=== PATIENT | female | born 1955 | race African-American/Black ===

== ENCOUNTER 2018-09-07 16:28 | Inpatient (IN) | payer OTHER ==
[~2018-09-07] VITALS: Ht 157.5 cm; Wt 92.6 kg
[2018-09-07] MEDS ORDERED: ONDANSETRON PF 4 MG/2 ML VIAL. IV ONE (17:00)
[2018-09-07] MEDS ORDERED: ASPIRIN 325 MG TABLET PO ONE (17:00)
[2018-09-07] MEDS ORDERED: MORPHINE SULFATE 10 MG/ML VIAL. IV ONE (17:00)
[2018-09-07] MEDS ORDERED: cloNIDine HCL 0.1 MG TABLET PO ONE (17:00)
--- NOTE | 2018-09-07 17:22 | RAD ---
PROCEDURE: PORTABLE CHEST 1V CLINICAL INDICATION: Chest pain, HTN COMPARISON: None FINDINGS: No pneumothorax identified. Cardiac and mediastinal contours unremarkable. No pulmonary consolidation or acute airspace disease. No acute osseous abnormalities identified. IMPRESSION: No pulmonary consolidation or acute airspace disease. Electronically signed by: Sanjiv Roberson DO (09/07/2018 5:19 PM) [facility]
[2018-09-07 17:39] LABS: BASO # 0.1 x10^3/uL (0.0-0.2); BASO % 2 % (0-3); EOS # 0.2 x10^3/uL (0.0-0.7); EOS % 3 % (0-3); HEMATOCRIT 40.4 % (36.0-47.0); HEMOGLOBIN 14.2 g/dL (12.0-15.5); LYMPH # 2.9 x10^3/uL (1.0-4.8); LYMPH % 35 % (24-48); MEAN CORPUSCULAR HEMOGLOBIN 31 pg (25-35); MEAN CORPUSCULAR HGB CONC 35 g/dL (31-37); MEAN CORPUSCULAR VOLUME 88 fL (79-100); MONO # 0.5 x10^3/uL (0.0-1.1); MONO % 6 % (0-9); NEUT # 4.7 x10^3uL (1.8-7.7); NEUT % 55 % (31-73); PLATELET COUNT 336 x10^3/uL (140-400); RED BLOOD COUNT 4.58 x10^6/uL (3.50-5.40); RED CELL DISTRIBUTION WIDTH 13.6 % (11.5-14.5); WHITE BLOOD COUNT 8.5 x10^3/uL (4.0-11.0)
[2018-09-07 17:51] LABS: CALCIUM 10.1 mg/dL (8.5-10.1); CREATININE 1.2 mg/dL (0.6-1.0); GFR 54.7; POTASSIUM 4.3 mmol/L (3.5-5.1)
[2018-09-07 17:57] LABS: ALBUMIN 4.1 g/dL (3.4-5.0); MAGNESIUM 2.1 mg/dL (1.8-2.4); TOTAL BILIRUBIN 0.3 mg/dL (0.2-1.0); TOTAL PROTEIN 8.3 g/dL (6.4-8.2)
[2018-09-07] MEDS ORDERED: ONDANSETRON PF 4 MG/2 ML VIAL. IV PRN ×2 (18:45→19:15)
[2018-09-07] MEDS ORDERED: ACETAMINOPHEN 325 MG TABLET. PO PRN (18:45)
[2018-09-07] MEDS ORDERED: NITROGLYCERIN SUBLINGUAL 0.4 MG BOTTLE OF 25. SL PRN (18:45)
[2018-09-07] MEDS ORDERED: MORPHINE SULFATE 4 MG/ML VIAL. IV PRN (18:45)
[2018-09-07] MEDS ORDERED: diphenhydrAMINE HCL 25 MG CAPSULE PO PRN (19:15)
[2018-09-07] MEDS ORDERED: LABETALOL 20 MG/4 ML DISP.SYRIN. IVP PRN (19:15)
--- NOTE | 2018-09-07 19:20 | PDOC1 ---
History and Physical Date of Admission Date of Admission DATE: 09/07/18 TIME: 19:14 Identification/Chief Complaint Chief Complaint left groin pain travelling to her left foot/toes Source Source: Caregiver, Chart review, Patient History of Present Illness History of Present Illness 63-year-old obese -H[place] female, first time here [facility], acute onset rather left groin pain traveling to her left toe/foot. Workup done at [facility] in [facility] included a CAT scan abdomen and pelvis and MRI showing osteoarthritis. She has seen an urgent care/ PCP prescribed her Flexeril 10 mg every 8 with little relief. She looks uncomfortable, blood pressure high because of the pain. She does not usually have high blood pressure. She is on clonidine 0.3 by mouth daily at bedtime at home, Synthroid, and Flexeril. She is prediabetic diet controlled. Past surgical history hysterectomy, sinus surgery and breast biopsy which is benign Family history: Cancer and DVT. Lab work is unremarkable except for mild creatinine 1.2 and a high blood pressure. She mentions right-sided chest pain hence was admitted. The right-sided chest pain she thinks is radiation from the significant discomfort she has from the left groin hip area traveling to her foot. There is palpable dorsalis pedis, no recent trauma, no red flags of back pain. I am admitting to consult physiatry too, trial of Lidoderm patch and NSAID. Controlled blood pressure. ER has consulted cardiology for the right-sided chest pain. Past Medical History Cardiovascular: HTN Endocrine: Diabetes Past Surgical History Past Surgical History: Breast Biopsy, Other (sinus sx) Family History Family History: High Cholestrol, Hypertension Social History Smoke: Quit ALCOHOL: occassional Drugs: None Current Medications Current Medications Current Medications Aspirin (Mel Aspirin) 325 mg 1X ONCE PO Last administered on 09/07/18at 17: 16; Start 09/07/18 at 17:00; Stop 09/07/18 at 17:01; Status DC Clonidine HCl (Catapres) 0.2 mg 1X ONCE PO Last administered on 09/07/18at 17: 16; Start 09/07/18 at 17:00; Stop 09/07/18 at 17:01; Status DC Ondansetron HCl (Zofran) 4 mg 1X ONCE IV Last administered on 09/07/18at 17:24 ; Start 09/07/18 at 17:00; Stop 09/07/18 at 17:01; Status DC Morphine Sulfate (Morphine Sulfate) 5 mg 1X ONCE IV Last administered on 09/07at 17:25; Start 09/07/18 at 17:00; Stop 09/07/18 at 17:01; Status DC Ondansetron HCl (Zofran) 4 mg PRN Q8HRS PRN IV NAUSEA/VOMITING; Start at 18:45; Stop 09/08/18 at 18:44 Morphine Sulfate (Morphine Sulfate) 4 mg PRN Q2HR PRN IV PAIN; Start 09/07/18 at 18:45; Stop 09/08/18 at 18:44 Acetaminophen (Tylenol) 650 mg PRN Q4HRS PRN PO FEVER; Start 09/07/18 at 18:45 ; Stop 09/08/18 at 18:44 Nitroglycerin (Nitrostat) 0.4 mg PRN Q5MIN PRN SL CHEST PAIN; Start 09/07/18 at 18:45; Stop 09/08/18 at 18:44 Allergies Allergies: Coded Allergies: No Known Drug Allergies (Unverified , 09/07/18) ROS Review of System As per history of present illness, the rest of ROS 14 point negative Physical Exam General: Alert, Oriented X3, Cooperative, No acute distress HEENT: Atraumatic, PERRLA, EOMI Lungs: Clear to auscultation, Normal air movement Heart: S1S2, RRR, no thrills, no rubs, no gallops, no murmurs Cardiovascular: S1, S2 Breasts: Normal, Rt breast nml w/o mass, Lt breast nml w/o mass, Nipples normal Abdomen: Normal bowel sounds, Soft, No tenderness Rectal Exam: not examined PELVIC: Nml ext genitalia, Nml ext vulva Extremities: Other (no limitation in motion of bilateral knees but on flexion of the left knee significant pain in the left groin area/left hip area and lower back) Skin: No rashes, No breakdown, No significant lesion Neuro: Normal gait, Normal speech, Strength at 5/5 X4 ext, Normal tone, Sensation intact, Cranial nerves 3-12 NL, Reflexes 2+ Psych/Mental Status: Mental status NL, Mood NL Vitals Vitals Vital Signs Date Time Temp Pulse Resp B/P (MAP) Pulse Ox O2 Delivery O2 Flow Rate FiO2 09/07/18 17:45 74 20 167/89 (115) 100 Room Air 2.0 09/07/18 16:43 97.9 97.9 Labs Labs Laboratory Tests Test 09/07/18 17:22 White Blood Count 8.5 x10^3/uL (4.0-11.0) Red Blood Count 4.58 x10^6/uL (3.50-5.40) Hemoglobin 14.2 g/dL (12.0-15.5) Hematocrit 40.4 % (36.0-47.0) Mean Corpuscular Volume 88 fL (79-100) Mean Corpuscular Hemoglobin 31 pg (25-35) Mean Corpuscular Hemoglobin Concent 35 g/dL (31-37) Red Cell Distribution Width 13.6 % (11.5-14.5) Platelet Count 336 x10^3/uL (140-400) Neutrophils (%) (Auto) 55 % (31-73) Lymphocytes (%) (Auto) 35 % (24-48) Monocytes (%) (Auto) 6 % (0-9) Eosinophils (%) (Auto) 3 % (0-3) Basophils (%) (Auto) 2 % (0-3) Neutrophils # (Auto) 4.7 x10^3uL (1.8-7.7) Lymphocytes # (Auto) 2.9 x10^3/uL (1.0-4.8) Monocytes # (Auto) 0.5 x10^3/uL (0.0-1.1) Eosinophils # (Auto) 0.2 x10^3/uL (0.0-0.7) Basophils # (Auto) 0.1 x10^3/uL (0.0-0.2) Sodium Level 140 mmol/L (136-145) Potassium Level 4.3 mmol/L (3.5-5.1) Chloride Level 101 mmol/L (98-107) Carbon Dioxide Level 30 mmol/L (21-32) Anion Gap 9 (6-14) Blood Urea Nitrogen 17 mg/dL (7-20) Creatinine 1.2 mg/dL (0.6-1.0) Estimated GFR (Cockcroft-Gault) 54.7 BUN/Creatinine Ratio 14 (6-20) Glucose Level 189 mg/dL (70-99) Calcium Level 10.1 mg/dL (8.5-10.1) Magnesium Level 2.1 mg/dL (1.8-2.4) Total Bilirubin 0.3 mg/dL (0.2-1.0) Aspartate Amino Transf (AST/SGOT) 27 U/L (15-37) Alanine Aminotransferase (ALT/SGPT) 107 U/L (14-59) Alkaline Phosphatase 213 U/L (46-116) Troponin I Quantitative < 0.017 ng/mL (0.000-0.055) JZ-Bxm-T-Type Natriuretic Peptide 30 pg/mL (0-124) Total Protein 8.3 g/dL (6.4-8.2) Albumin 4.1 g/dL (3.4-5.0) Albumin/Globulin Ratio 1.0 (1.0-1.7) Laboratory Tests Test 09/07/18 17:22 White Blood Count 8.5 x10^3/uL (4.0-11.0) Red Blood Count 4.58 x10^6/uL (3.50-5.40) Hemoglobin 14.2 g/dL (12.0-15.5) Hematocrit 40.4 % (36.0-47.0) Mean Corpuscular Volume 88 fL (79-100) Mean Corpuscular Hemoglobin 31 pg (25-35) Mean Corpuscular Hemoglobin Concent 35 g/dL (31-37) Red Cell Distribution Width 13.6 % (11.5-14.5) Platelet Count 336 x10^3/uL (140-400) Neutrophils (%) (Auto) 55 % (31-73) Lymphocytes (%) (Auto) 35 % (24-48) Monocytes (%) (Auto) 6 % (0-9) Eosinophils (%) (Auto) 3 % (0-3) Basophils (%) (Auto) 2 % (0-3) Neutrophils # (Auto) 4.7 x10^3uL (1.8-7.7) Lymphocytes # (Auto) 2.9 x10^3/uL (1.0-4.8) Monocytes # (Auto) 0.5 x10^3/uL (0.0-1.1) Eosinophils # (Auto) 0.2 x10^3/uL (0.0-0.7) Basophils # (Auto) 0.1 x10^3/uL (0.0-0.2) Sodium Level 140 mmol/L (136-145) Potassium Level 4.3 mmol/L (3.5-5.1) Chloride Level 101 mmol/L (98-107) Carbon Dioxide Level 30 mmol/L (21-32) Anion Gap 9 (6-14) Blood Urea Nitrogen 17 mg/dL (7-20) Creatinine 1.2 mg/dL (0.6-1.0) Estimated GFR (Cockcroft-Gault) 54.7 BUN/Creatinine Ratio 14 (6-20) Glucose Level 189 mg/dL (70-99) Calcium Level 10.1 mg/dL (8.5-10.1) Magnesium Level 2.1 mg/dL (1.8-2.4) Total Bilirubin 0.3 mg/dL (0.2-1.0) Aspartate Amino Transf (AST/SGOT) 27 U/L (15-37) Alanine Aminotransferase (ALT/SGPT) 107 U/L (14-59) Alkaline Phosphatase 213 U/L (46-116) Troponin I Quantitative < 0.017 ng/mL (0.000-0.055) ST-Lvp-G-Type Natriuretic Peptide 30 pg/mL (0-124) Total Protein 8.3 g/dL (6.4-8.2) Albumin 4.1 g/dL (3.4-5.0) Albumin/Globulin Ratio 1.0 (1.0-1.7) VTE Prophylaxis Ordered VTE Prophylaxis Devices: Yes VTE Pharmacological Prophylaxi: Yes Assessment/Plan Assessment/Plan Acute to subacute onset left groin pain, radiating to the foot Low back pain Diagnosis osteoarthritis of the left hip causing pain Obesity with a BMI 35 Accelerated hypertension POA on top of acute pain Hypothyroidism on Synthroid History hysterectomy, sinus surgery, breast biopsy which is benign History of DVT in the family History of colon cancer in the family RT sided CP Plan: Resume home meds including Flexeril 10 every 8 Labetalol when necessary for high bp - but then again she is in pain NSAID, trial of Lidoderm patch to leg - physiatry consult Cards consulted for right-sided chest pain-cardiac enzymes to cycle Just because of family history of DVT and significant left leg pain I will order ultrasound just to make sure there is no DVT otherwise my threshold for this is high. Seen at ER, discussed my findings and plan she agrees ARANZA BERRY MD Sep 07, 2018 19:20
--- NOTE | 2018-09-07 19:33 | PHYS DOC ---
Past Medical History Past Medical History: No Pertinent History Past Surgical History: Hysterectomy Additional Past Surgical Histo: BREAST BIOPSY, SINUS SURGERY Alcohol Use: Occasionally Drug Use: None Adult General Chief Complaint Chief Complaint: CHEST PAIN-CARDIAC NATURE HPI HPI Patient is a 63 year old female with no significant medical history per her statement though takes clonidine for insomnia who presents complaining of 8 out of 10 intermittent episodes of substernal chest pain nonradiating in nature that have been going on for 2 days. Patient is also complaining of nausea, denies any vomiting. She states this nausea has been going on for weeks. She states she's had abdominal pain for weeks and has been seen at [facility] where they did a big workup which was negative. Patient states she does not know if her abdominal pain is the one causing her to have chest pain. Denies any diarrhea. Denies any fever. She appears sad and tearful at times. Denies any suicidal or homicidal ideations. Patient denies anything relieving or making her pain worse. Review of Systems Review of Systems Constitutional: Denies fever or chills [] Eyes: Denies change in visual acuity, redness, or eye pain [] HENT: Denies nasal congestion or sore throat [] Respiratory: Denies cough or shortness of breath [] Cardiovascular: Reports substernal chest pain GI: Reports nausea with abdominal pain for weeks, denies vomiting, bloody stools or diarrhea [] : Denies dysuria or hematuria [] Musculoskeletal: Denies back pain or joint pain [] Integument: Denies rash or skin lesions [] Neurologic: Denies headache, focal weakness or sensory changes [] Pysch: appears sad and tearful All other systems were reviewed and found to be within normal limits, except as documented in this note. Current Medications Current Medications Current Medications Medications (Trade) Dose Ordered Sig/João Start Time Stop Time Status Last Admin Dose Admin Aspirin (Mel Aspirin) 325 mg 1X ONCE 09/07/18 17:00 09/07/18 17:01 DC 09/07/18 17:16 325 MG Clonidine HCl (Catapres) 0.2 mg 1X ONCE 09/07/18 17:00 09/07/18 17:01 DC 09/07/18 17:16 0.2 MG Morphine Sulfate (Morphine Sulfate) 5 mg 1X ONCE 09/07/18 17:00 09/07/18 17:01 DC 09/07/18 17:25 5 MG Ondansetron HCl (Zofran) 4 mg 1X ONCE 09/07/18 17:00 09/07/18 17:01 DC 09/07/18 17:24 4 MG Allergies Allergies Allergies Coded Allergies Type Severity Reaction Last Updated Verified No Known Drug Allergies 09/07/18 No Physical Exam Physical Exam Constitutional: Well developed, well nourished, no acute distress, non-toxic appearance. [] HENT: Normocephalic, atraumatic, bilateral external ears normal, oropharynx moist, no oral exudates, nose normal. [] Eyes: PERRLA, EOMI, conjunctiva normal, no discharge. [] Neck: Normal range of motion, no tenderness, supple, no stridor. [] Cardiovascular:Heart rate regular rhythm, no murmur [] Lungs & Thorax: Bilateral breath sounds clear to auscultation [] Abdomen: Bowel sounds normal, soft, no tenderness, no masses, no pulsatile masses. [] Skin: Warm, dry, no erythema, no rash. [] Back: No tenderness, no CVA tenderness. [] Extremities: No tenderness, no cyanosis, no clubbing, ROM intact, no edema. [] Neurologic: Alert and oriented X 3, normal motor function, normal sensory function, no focal deficits noted. [] Psychologic: Flat affect, appears sad at times crying Current Patient Data Vital Signs Vital Signs Date Time Temp Pulse Resp B/P (MAP) Pulse Ox O2 Delivery O2 Flow Rate FiO2 09/07/18 17:45 74 20 167/89 (115) 100 Room Air 2.0 09/07/18 16:43 97.9 97.9 Lab Values Laboratory Tests Test 09/07/18 17:22 White Blood Count 8.5 x10^3/uL (4.0-11.0) Red Blood Count 4.58 x10^6/uL (3.50-5.40) Hemoglobin 14.2 g/dL (12.0-15.5) Hematocrit 40.4 % (36.0-47.0) Mean Corpuscular Volume 88 fL (79-100) Mean Corpuscular Hemoglobin 31 pg (25-35) Mean Corpuscular Hemoglobin Concent 35 g/dL (31-37) Red Cell Distribution Width 13.6 % (11.5-14.5) Platelet Count 336 x10^3/uL (140-400) Neutrophils (%) (Auto) 55 % (31-73) Lymphocytes (%) (Auto) 35 % (24-48) Monocytes (%) (Auto) 6 % (0-9) Eosinophils (%) (Auto) 3 % (0-3) Basophils (%) (Auto) 2 % (0-3) Neutrophils # (Auto) 4.7 x10^3uL (1.8-7.7) Lymphocytes # (Auto) 2.9 x10^3/uL (1.0-4.8) Monocytes # (Auto) 0.5 x10^3/uL (0.0-1.1) Eosinophils # (Auto) 0.2 x10^3/uL (0.0-0.7) Basophils # (Auto) 0.1 x10^3/uL (0.0-0.2) Sodium Level 140 mmol/L (136-145) Potassium Level 4.3 mmol/L (3.5-5.1) Chloride Level 101 mmol/L (98-107) Carbon Dioxide Level 30 mmol/L (21-32) Anion Gap 9 (6-14) Blood Urea Nitrogen 17 mg/dL (7-20) Creatinine 1.2 mg/dL (0.6-1.0) H Estimated GFR (Cockcroft-Gault) 54.7 BUN/Creatinine Ratio 14 (6-20) Glucose Level 189 mg/dL (70-99) H Calcium Level 10.1 mg/dL (8.5-10.1) Magnesium Level 2.1 mg/dL (1.8-2.4) Total Bilirubin 0.3 mg/dL (0.2-1.0) Aspartate Amino Transferase (AST) 27 U/L (15-37) Alanine Aminotransferase (ALT) 107 U/L (14-59) H Alkaline Phosphatase 213 U/L (46-116) H Troponin I Quantitative < 0.017 ng/mL (0.000-0.055) KY-Knb-X-Type Natriuretic Peptide 30 pg/mL (0-124) Total Protein 8.3 g/dL (6.4-8.2) H Albumin 4.1 g/dL (3.4-5.0) Albumin/Globulin Ratio 1.0 (1.0-1.7) Laboratory Tests 09/07/18 17:22 Laboratory Tests 09/07/18 17:22 EKG EKG 16:38 Interpreted by sinus rate them heart rate 87 [] Radiology/Procedures Radiology/Procedures []PROCEDURE: PORTABLE CHEST 1V PROCEDURE: PORTABLE CHEST 1V CLINICAL INDICATION: Chest pain, HTN COMPARISON: None FINDINGS: No pneumothorax identified. Cardiac and mediastinal contours unremarkable. No pulmonary consolidation or acute airspace disease. No acute osseous abnormalities identified. IMPRESSION: No pulmonary consolidation or acute airspace disease. Electronically signed by: Sanjiv Simon DO (09/07/2018 5:19 PM) [facility] DICTATED and SIGNED BY: SANJIV SIMON DO DATE: 09/07/181717 Course & Med Decision Making Course & Med Decision Making Pertinent Labs and Imaging studies reviewed. (See chart for details) This is a 63-year-old female patient presenting to the ED today complaining of chest pain for 2 days with nausea that appears to have been going on for weeks. See history of present illness. Patient's cardiac workup is negative. Heart score 1. Admitted under Observation 18:[address] Jorgensen who will f/u with patient in AM 18:[address] Khan who accepted patient for admission Dragon Disclaimer Dragon Disclaimer This electronic medical record was generated, in whole or in part, using a voice recognition dictation system. Departure Departure Impression: Primary Impression: Chest pain Additional Impression: Nausea Disposition: ADMITTED INPATIENT Condition: STABLE Referrals: UNKNOWN PCP NAME (PCP) Problem Qualifiers Primary Impression: Chest pain Chest pain type: unspecified Qualified Codes: R07.9 - Chest pain, unspecified MUTUNGA,WALKER [employer]ORAT[employer] TESTER Sep 07, 2018 19:33
[2018-09-07 19:59] VITALS: BP 131/77
[2018-09-07] MEDS ORDERED: PANT20TA2 PO (20:58)
[2018-09-07] MEDS ORDERED: RANI150C PO (20:58)
[2018-09-07] MEDS ORDERED: LEVO50TA PO (20:58)
[2018-09-07] MEDS ORDERED: CLON0.3T PO (20:58)
[2018-09-07] MEDS ORDERED: LOSA50TA7 PO (20:58)
[2018-09-07] MEDS ORDERED: TRAZ-85 PO (20:58)
[2018-09-07] MEDS ORDERED: CITA40TA5 PO (20:58)
[2018-09-07] MEDS: cloNIDine HCL 0.3 MG TABLET PO SCH (21:29)
[2018-09-07] MEDS: LIDOCAINE (700MG/PATCH) PATCH. TD SCH (21:29)
[2018-09-07] MEDS: CYCLOBENZAPRINE 10 MG TABLET. PO SCH (21:30)
[2018-09-07] MEDS: NAPROXEN 500 MG TABLET PO SCH (21:30)
[2018-09-07 23:59] VITALS: BP 142/72
[2018-09-08 03:59] VITALS: BP 103/58
[2018-09-08 07:00] VITALS: BP 116/64
[2018-09-08 07:10] LABS: BASO # 0.1 x10^3/uL (0.0-0.2); BASO % 1 % (0-3); EOS # 0.3 x10^3/uL (0.0-0.7); EOS % 4 % (0-3); HEMATOCRIT 37.8 % (36.0-47.0); HEMOGLOBIN 13.3 g/dL (12.0-15.5); LYMPH # 2.7 x10^3/uL (1.0-4.8); LYMPH % 39 % (24-48); MEAN CORPUSCULAR HEMOGLOBIN 31 pg (25-35); MEAN CORPUSCULAR HGB CONC 35 g/dL (31-37); MEAN CORPUSCULAR VOLUME 88 fL (79-100); MONO # 0.5 x10^3/uL (0.0-1.1); MONO % 8 % (0-9); NEUT # 3.3 x10^3uL (1.8-7.7); NEUT % 48 % (31-73); PLATELET COUNT 261 x10^3/uL (140-400); RED BLOOD COUNT 4.32 x10^6/uL (3.50-5.40); RED CELL DISTRIBUTION WIDTH 13.5 % (11.5-14.5); WHITE BLOOD COUNT 6.9 x10^3/uL (4.0-11.0)
[2018-09-08 07:25] LABS: CALCIUM 9.7 mg/dL (8.5-10.1); CREATININE 1.2 mg/dL (0.6-1.0); GFR 54.7; POTASSIUM 4.2 mmol/L (3.5-5.1)
[2018-09-08] MEDS ORDERED: traZODone 50 MG TABLET. PO PRN (07:30)
[2018-09-08] MEDS: CYCLOBENZAPRINE 10 MG TABLET. PO SCH ×4 (09:00→21:36)
[2018-09-08] MEDS: PATCH REMOVAL. MC SCH (09:12)
[2018-09-08] MEDS: NAPROXEN 500 MG TABLET PO SCH (09:12)
[2018-09-08] MEDS: LEVOTHYROXINE 50 MCG TABLET PO SCH (09:13)
[2018-09-08] MEDS: LOSARTAN POTASSIUM 50 MG TABLET. PO SCH (09:13)
--- NOTE | 2018-09-08 09:19 | EKG ---
[facility] [address] [place] [address] Test Date: 2018-09-07 Test Time: 16:38:52 Pat Name: NOE LOPEZ Department: Room: 563 1 Gender: F Business Management Associate: ERNESTO : 1955 Requested By: WALKER GARCIA Order Number: [id number] Reading MD: Donnell Escalante MD Measurements Intervals [place] Rate: 87 P: 46 MI: 120 QRS: 16 QRSD: 76 T: 47 QT: 350 QTc: 422 Interpretive Statements SINUS RHYTHM Electronically Signed On 09-10-2018 11:28:29 CDT by Donnell Escalante MD
[2018-09-08 10:57] VITALS: BP 114/65
--- NOTE | 2018-09-08 11:26 | PDOC ---
PROGRESS NOTES Chief Complaint Chief Complaint Acute to subacute onset left groin pain, radiating to the foot - LUmbar sciatica , possiblity Low back pain Diagnosis osteoarthritis of the left hip causing pain Obesity with a BMI 35 Accelerated hypertension POA on top of acute pain Hypothyroidism on Synthroid History hysterectomy, sinus surgery, breast biopsy which is benign History of DVT in the family History of colon cancer in the family RT sided CP History of Present Illness History of Present Illness Continues to have the left-sided back pain/lumbar pain radiating down to the foot Discussed with physiatry, maybe some lumbar sciatica Need to get records from [facility] where she had an MRI and CAT scan of the pelvis not too long ago. If no sacral imaging done, might need 1 here Trial of Lidoderm patch Plan: CPM He has been less than 12 hours since I last saw her, CPM, follow physiatry recommendations Obtain records from [place] Vitals Vitals Vital Signs Date Time Temp Pulse Resp B/P (MAP) Pulse Ox O2 Delivery O2 Flow Rate FiO2 09/08/18 10:57 98.5 78 18 114/65 (81) 97 Room Air 98.5 09/07/18 17:45 2.0 Physical Exam General: Alert, Oriented X3, Cooperative, No acute distress Heart: Regular rate, Normal S1, Normal S2 Lungs: Clear Abdomen: Normal bowel sounds, Soft, No tenderness Extremities: Other (no limitation in motion of bilateral knees but on flexion of the left knee significant pain in the left groin area/left hip area and lower back) Skin: No rashes, No breakdown, No significant lesion Labs LABS Laboratory Tests Test 09/07/18 17:22 09/08/18 07:00 White Blood Count 8.5 x10^3/uL (4.0-11.0) 6.9 x10^3/uL (4.0-11.0) Red Blood Count 4.58 x10^6/uL (3.50-5.40) 4.32 x10^6/uL (3.50-5.40) Hemoglobin 14.2 g/dL (12.0-15.5) 13.3 g/dL (12.0-15.5) Hematocrit 40.4 % (36.0-47.0) 37.8 % (36.0-47.0) Mean Corpuscular Volume 88 fL (79-100) 88 fL (79-100) Mean Corpuscular Hemoglobin 31 pg (25-35) 31 pg (25-35) Mean Corpuscular Hemoglobin Concent 35 g/dL (31-37) 35 g/dL (31-37) Red Cell Distribution Width 13.6 % (11.5-14.5) 13.5 % (11.5-14.5) Platelet Count 336 x10^3/uL (140-400) 261 x10^3/uL (140-400) Neutrophils (%) (Auto) 55 % (31-73) 48 % (31-73) Lymphocytes (%) (Auto) 35 % (24-48) 39 % (24-48) Monocytes (%) (Auto) 6 % (0-9) 8 % (0-9) Eosinophils (%) (Auto) 3 % (0-3) 4 % (0-3) Basophils (%) (Auto) 2 % (0-3) 1 % (0-3) Neutrophils # (Auto) 4.7 x10^3uL (1.8-7.7) 3.3 x10^3uL (1.8-7.7) Lymphocytes # (Auto) 2.9 x10^3/uL (1.0-4.8) 2.7 x10^3/uL (1.0-4.8) Monocytes # (Auto) 0.5 x10^3/uL (0.0-1.1) 0.5 x10^3/uL (0.0-1.1) Eosinophils # (Auto) 0.2 x10^3/uL (0.0-0.7) 0.3 x10^3/uL (0.0-0.7) Basophils # (Auto) 0.1 x10^3/uL (0.0-0.2) 0.1 x10^3/uL (0.0-0.2) Sodium Level 140 mmol/L (136-145) 141 mmol/L (136-145) Potassium Level 4.3 mmol/L (3.5-5.1) 4.2 mmol/L (3.5-5.1) Chloride Level 101 mmol/L (98-107) 104 mmol/L (98-107) Carbon Dioxide Level 30 mmol/L (21-32) 27 mmol/L (21-32) Anion Gap 9 (6-14) 10 (6-14) Blood Urea Nitrogen 17 mg/dL (7-20) 18 mg/dL (7-20) Creatinine 1.2 mg/dL (0.6-1.0) 1.2 mg/dL (0.6-1.0) Estimated GFR (Cockcroft-Gault) 54.7 54.7 BUN/Creatinine Ratio 14 (6-20) Glucose Level 189 mg/dL (70-99) 201 mg/dL (70-99) Calcium Level 10.1 mg/dL (8.5-10.1) 9.7 mg/dL (8.5-10.1) Magnesium Level 2.1 mg/dL (1.8-2.4) Total Bilirubin 0.3 mg/dL (0.2-1.0) Aspartate Amino Transf (AST/SGOT) 27 U/L (15-37) Alanine Aminotransferase (ALT/SGPT) 107 U/L (14-59) Alkaline Phosphatase 213 U/L (46-116) Troponin I Quantitative < 0.017 ng/mL (0.000-0.055) < 0.017 ng/mL (0.000-0.055) XB-Zod-K-Type Natriuretic Peptide 30 pg/mL (0-124) Total Protein 8.3 g/dL (6.4-8.2) Albumin 4.1 g/dL (3.4-5.0) Albumin/Globulin Ratio 1.0 (1.0-1.7) Triglycerides Level 217 mg/dL (0-150) Cholesterol Level 180 mg/dL (0-200) LDL Cholesterol, Calculated 92 mg/dL (0-100) VLDL Cholesterol, Calculated 43 mg/dL (0-40) Non-HDL Cholesterol Calculated 135 mg/dL (0-129) HDL Cholesterol 45 mg/dL (40-60) Cholesterol/HDL Ratio 4.0 Review of Systems Review of Systems Left back pain, left foot pain Assessment and Plan Assessmemt and Plan Problems Medical Problems: (1) Nausea Status: Acute Comment Review of Relevant I have reviewed the following items shola (where applicable) has been applied. Labs Laboratory Tests Test 09/07/18 17:22 09/08/18 07:00 White Blood Count 8.5 x10^3/uL (4.0-11.0) 6.9 x10^3/uL (4.0-11.0) Red Blood Count 4.58 x10^6/uL (3.50-5.40) 4.32 x10^6/uL (3.50-5.40) Hemoglobin 14.2 g/dL (12.0-15.5) 13.3 g/dL (12.0-15.5) Hematocrit 40.4 % (36.0-47.0) 37.8 % (36.0-47.0) Mean Corpuscular Volume 88 fL (79-100) 88 fL (79-100) Mean Corpuscular Hemoglobin 31 pg (25-35) 31 pg (25-35) Mean Corpuscular Hemoglobin Concent 35 g/dL (31-37) 35 g/dL (31-37) Red Cell Distribution Width 13.6 % (11.5-14.5) 13.5 % (11.5-14.5) Platelet Count 336 x10^3/uL (140-400) 261 x10^3/uL (140-400) Neutrophils (%) (Auto) 55 % (31-73) 48 % (31-73) Lymphocytes (%) (Auto) 35 % (24-48) 39 % (24-48) Monocytes (%) (Auto) 6 % (0-9) 8 % (0-9) Eosinophils (%) (Auto) 3 % (0-3) 4 % (0-3) Basophils (%) (Auto) 2 % (0-3) 1 % (0-3) Neutrophils # (Auto) 4.7 x10^3uL (1.8-7.7) 3.3 x10^3uL (1.8-7.7) Lymphocytes # (Auto) 2.9 x10^3/uL (1.0-4.8) 2.7 x10^3/uL (1.0-4.8) Monocytes # (Auto) 0.5 x10^3/uL (0.0-1.1) 0.5 x10^3/uL (0.0-1.1) Eosinophils # (Auto) 0.2 x10^3/uL (0.0-0.7) 0.3 x10^3/uL (0.0-0.7) Basophils # (Auto) 0.1 x10^3/uL (0.0-0.2) 0.1 x10^3/uL (0.0-0.2) Sodium Level 140 mmol/L (136-145) 141 mmol/L (136-145) Potassium Level 4.3 mmol/L (3.5-5.1) 4.2 mmol/L (3.5-5.1) Chloride Level 101 mmol/L (98-107) 104 mmol/L (98-107) Carbon Dioxide Level 30 mmol/L (21-32) 27 mmol/L (21-32) Anion Gap 9 (6-14) 10 (6-14) Blood Urea Nitrogen 17 mg/dL (7-20) 18 mg/dL (7-20) Creatinine 1.2 mg/dL (0.6-1.0) 1.2 mg/dL (0.6-1.0) Estimated GFR (Cockcroft-Gault) 54.7 54.7 BUN/Creatinine Ratio 14 (6-20) Glucose Level 189 mg/dL (70-99) 201 mg/dL (70-99) Calcium Level 10.1 mg/dL (8.5-10.1) 9.7 mg/dL (8.5-10.1) Magnesium Level 2.1 mg/dL (1.8-2.4) Total Bilirubin 0.3 mg/dL (0.2-1.0) Aspartate Amino Transf (AST/SGOT) 27 U/L (15-37) Alanine Aminotransferase (ALT/SGPT) 107 U/L (14-59) Alkaline Phosphatase 213 U/L (46-116) Troponin I Quantitative < 0.017 ng/mL (0.000-0.055) < 0.017 ng/mL (0.000-0.055) HL-Lll-I-Type Natriuretic Peptide 30 pg/mL (0-124) Total Protein 8.3 g/dL (6.4-8.2) Albumin 4.1 g/dL (3.4-5.0) Albumin/Globulin Ratio 1.0 (1.0-1.7) Triglycerides Level 217 mg/dL (0-150) Cholesterol Level 180 mg/dL (0-200) LDL Cholesterol, Calculated 92 mg/dL (0-100) VLDL Cholesterol, Calculated 43 mg/dL (0-40) Non-HDL Cholesterol Calculated 135 mg/dL (0-129) HDL Cholesterol 45 mg/dL (40-60) Cholesterol/HDL Ratio 4.0 Laboratory Tests Test 09/07/18 17:22 09/08/18 07:00 White Blood Count 8.5 x10^3/uL (4.0-11.0) 6.9 x10^3/uL (4.0-11.0) Red Blood Count 4.58 x10^6/uL (3.50-5.40) 4.32 x10^6/uL (3.50-5.40) Hemoglobin 14.2 g/dL (12.0-15.5) 13.3 g/dL (12.0-15.5) Hematocrit 40.4 % (36.0-47.0) 37.8 % (36.0-47.0) Mean Corpuscular Volume 88 fL (79-100) 88 fL (79-100) Mean Corpuscular Hemoglobin 31 pg (25-35) 31 pg (25-35) Mean Corpuscular Hemoglobin Concent 35 g/dL (31-37) 35 g/dL (31-37) Red Cell Distribution Width 13.6 % (11.5-14.5) 13.5 % (11.5-14.5) Platelet Count 336 x10^3/uL (140-400) 261 x10^3/uL (140-400) Neutrophils (%) (Auto) 55 % (31-73) 48 % (31-73) Lymphocytes (%) (Auto) 35 % (24-48) 39 % (24-48) Monocytes (%) (Auto) 6 % (0-9) 8 % (0-9) Eosinophils (%) (Auto) 3 % (0-3) 4 % (0-3) Basophils (%) (Auto) 2 % (0-3) 1 % (0-3) Neutrophils # (Auto) 4.7 x10^3uL (1.8-7.7) 3.3 x10^3uL (1.8-7.7) Lymphocytes # (Auto) 2.9 x10^3/uL (1.0-4.8) 2.7 x10^3/uL (1.0-4.8) Monocytes # (Auto) 0.5 x10^3/uL (0.0-1.1) 0.5 x10^3/uL (0.0-1.1) Eosinophils # (Auto) 0.2 x10^3/uL (0.0-0.7) 0.3 x10^3/uL (0.0-0.7) Basophils # (Auto) 0.1 x10^3/uL (0.0-0.2) 0.1 x10^3/uL (0.0-0.2) Sodium Level 140 mmol/L (136-145) 141 mmol/L (136-145) Potassium Level 4.3 mmol/L (3.5-5.1) 4.2 mmol/L (3.5-5.1) Chloride Level 101 mmol/L (98-107) 104 mmol/L (98-107) Carbon Dioxide Level 30 mmol/L (21-32) 27 mmol/L (21-32) Anion Gap 9 (6-14) 10 (6-14) Blood Urea Nitrogen 17 mg/dL (7-20) 18 mg/dL (7-20) Creatinine 1.2 mg/dL (0.6-1.0) 1.2 mg/dL (0.6-1.0) Estimated GFR (Cockcroft-Gault) 54.7 54.7 BUN/Creatinine Ratio 14 (6-20) Glucose Level 189 mg/dL (70-99) 201 mg/dL (70-99) Calcium Level 10.1 mg/dL (8.5-10.1) 9.7 mg/dL (8.5-10.1) Magnesium Level 2.1 mg/dL (1.8-2.4) Total Bilirubin 0.3 mg/dL (0.2-1.0) Aspartate Amino Transf (AST/SGOT) 27 U/L (15-37) Alanine Aminotransferase (ALT/SGPT) 107 U/L (14-59) Alkaline Phosphatase 213 U/L (46-116) Troponin I Quantitative < 0.017 ng/mL (0.000-0.055) < 0.017 ng/mL (0.000-0.055) UR-Jhh-Y-Type Natriuretic Peptide 30 pg/mL (0-124) Total Protein 8.3 g/dL (6.4-8.2) Albumin 4.1 g/dL (3.4-5.0) Albumin/Globulin Ratio 1.0 (1.0-1.7) Triglycerides Level 217 mg/dL (0-150) Cholesterol Level 180 mg/dL (0-200) LDL Cholesterol, Calculated 92 mg/dL (0-100) VLDL Cholesterol, Calculated 43 mg/dL (0-40) Non-HDL Cholesterol Calculated 135 mg/dL (0-129) HDL Cholesterol 45 mg/dL (40-60) Cholesterol/HDL Ratio 4.0 Medications Current Medications Aspirin (Mel Aspirin) 325 mg 1X ONCE PO Last administered on 09/07/18at 17: 16; Start 09/07/18 at 17:00; Stop 09/07/18 at 17:01; Status DC Clonidine HCl (Catapres) 0.2 mg 1X ONCE PO Last administered on 09/07/18at 17: 16; Start 09/07/18 at 17:00; Stop 09/07/18 at 17:01; Status DC Ondansetron HCl (Zofran) 4 mg 1X ONCE IV Last administered on 09/07/18at 17:24 ; Start 09/07/18 at 17:00; Stop 09/07/18 at 17:01; Status DC Morphine Sulfate (Morphine Sulfate) 5 mg 1X ONCE IV Last administered on 09/07at 17:25; Start 09/07/18 at 17:00; Stop 09/07/18 at 17:01; Status DC Ondansetron HCl (Zofran) 4 mg PRN Q8HRS PRN IV NAUSEA/VOMITING; Start at 18:45; Stop 09/07/18 at 19:14; Status DC Morphine Sulfate (Morphine Sulfate) 4 mg PRN Q2HR PRN IV PAIN; Start 09/07/18 at 18:45; Stop 09/08/18 at 18:44 Acetaminophen (Tylenol) 650 mg PRN Q4HRS PRN PO FEVER; Start 09/07/18 at 18:45 ; Stop 09/08/18 at 18:44 Nitroglycerin (Nitrostat) 0.4 mg PRN Q5MIN PRN SL CHEST PAIN; Start 09/07/18 at 18:45; Stop 09/08/18 at 18:44 Ondansetron HCl (Zofran) 4 mg PRN Q6HRS PRN IV NAUSEA/VOMITING; Start at 19:15 Lidocaine (Lidoderm) 1 patch QHS TD Last administered on 09/07/18at 21:29; Start 09/07/18 at 20:00 Miscellaneous (Lidoderm Patch Removal) 1 ea DAILY MC Last administered on 09/08at 09:12; Start 09/08/18 at 09:00 Naproxen (Naprosyn) 500 mg BIDWMEALS PO Last administered on 09/08/18at 09:12; Start 09/07/18 at 19:15 Labetalol HCl (Normodyne Iv Push) 20 mg PRN Q2HR PRN IVP HYPERTENSION, SEE COMMENTS; Start 09/07/18 at 19:15 Diphenhydramine HCl (Benadryl) 25 mg PRN QHS PRN PO INSOMNIA 1ST CHOICE; Start 09/07/18 at 19:15 Cyclobenzaprine HCl (Flexeril) 10 mg TID PO Last administered on 09/07/18at 21: 30; Start 09/07/18 at 21:00 Clonidine HCl (Catapres) 0.3 mg QHS PO Last administered on 09/07/18at 21:29; Start 09/07/18 at 21:00 Losartan Potassium (Cozaar) 50 mg DAILY PO Last administered on 09/08/18at 09: 13; Start 09/08/18 at 09:00 Trazodone HCl (Desyrel) 50 mg PRN QHS PRN PO INSOMNIA 2ND CHOICE; Start at 07:30 Citalopram Hydrobromide (CeleXA) 40 mg DAILY PO ; Start 09/08/18 at 10:00 Levothyroxine Sodium (Synthroid) 50 mcg DAILY06 PO Last administered on at 09:13; Start 09/08/18 at 10:00 Pantoprazole Sodium (Protonix) 40 mg DAILYAC PO ; Start 09/08/18 at 10:00 Famotidine (Pepcid) 20 mg QHS PO ; Start 09/08/18 at 21:00; Stop 09/08/18 at 21:00; Status DC Active Scripts Active Reported Losartan Potassium 50 Mg Tablet 50 Mg PO DAILY Citalopram Hbr (Citalopram Hydrobromide) 40 Mg Tablet 40 Mg PO DAILY Synthroid (Levothyroxine Sodium) 50 Mcg Tablet 1 Tab PO DAILY Ranitidine Hcl 150 Mg Capsule 150 Mg PO DAILY Trazodone Hcl 50 Mg Tablet 50 Mg PO PRN QHS PRN Protonix (Pantoprazole Sodium) 20 Mg Tablet.dr 40 Mg PO DAILY Clonidine Hcl 0.3 Mg Tablet 1 Tab PO QHS Vitals/I & O Vital Sign - Last 24 Hours 09/07/18 09/07/18 09/07/18 09/07/18 16:43 17:16 17:25 17:30 Temp 97.9 97.9 Pulse 84 75 76 Resp 20 20 20 B/P (MAP) 201/98 (132) 201/98 167/87 (113) Pulse Ox 100 100 O2 Delivery Room Air Room Air Nasal Cannula O2 Flow Rate 2.0 09/07/18 09/07/18 09/07/18 09/07/18 17:45 19:10 19:59 21:29 Temp 97.7 97.7 Pulse 74 78 72 72 Resp 20 16 19 B/P (MAP) 167/89 (115) 168/81 (110) 131/77 (95) 131/77 Pulse Ox 100 98 99 O2 Delivery Room Air Room Air Room Air O2 Flow Rate 2.0 09/07/18 09/07/18 09/08/18 09/08/18 23:50 23:59 03:59 07:00 Temp 97.5 97.9 96.8 97.5 97.9 96.8 Pulse 70 68 63 Resp 19 18 18 B/P (MAP) 142/72 (95) 103/58 (73) 116/64 (81) Pulse Ox 100 97 96 O2 Delivery Room Air Room Air Room Air Room Air 09/08/18 09/08/18 09:13 10:57 Temp 98.5 98.5 Pulse 63 78 Resp 18 B/P (MAP) 116/64 114/65 (81) Pulse Ox 97 O2 Delivery Room Air Intake and Output 09/07/18 09/07/18 09/08/18 15:00 23:00 07:00 Intake Total 120 ml 720 ml Balance 120 ml 720 ml ARANZA BERRY MD Sep 08, 2018 11:26
[2018-09-08] MEDS ORDERED: methylPREDNISolone ACETATE 40 MG/ML VIAL. IM ONE (11:30)
[2018-09-08] MEDS ORDERED: BUPIVACAINE MPF 0.25% 10 ML VIAL. IJ ONE (11:30)
--- NOTE | 2018-09-08 12:21 | PDOC2 ---
CONSULT Date of Consult Date of Consult DATE: 09/08/18 TIME: 12:21 Reason for Consult Reason for Consult: Chest pain Referring Physician Referring Physician: Dr. Khan Identification/Chief Complaint Chief Complaint Chest pain Source Source: Chart review, Patient History of Present Illness Reason for Visit: 63-year-old -[place] female presented with left hip and groin pain radiating to left leg associated with right-sided chest pain that she described as sharp in nature, 7/10 severity associated with mild shortness of breath. She denied any orthopnea/PND, palpitations or syncope. She quit smoking several years ago and denied any family history of premature coronary disease. Past Medical History Cardiovascular: HTN Endocrine: Diabetes Past Surgical History Past Surgical History: Breast Biopsy, Other (sinus sx) Family History Family History: High Cholestrol, Hypertension Social History Quit ALCOHOL: occassional Drugs: None Current Problem List Problem List Problems Medical Problems: (1) Nausea Status: Acute Current Medications Current Medications Current Medications Aspirin (Mel Aspirin) 325 mg 1X ONCE PO Last administered on 09/07/18at 17: 16; Start 09/07/18 at 17:00; Stop 09/07/18 at 17:01; Status DC Clonidine HCl (Catapres) 0.2 mg 1X ONCE PO Last administered on 09/07/18at 17: 16; Start 09/07/18 at 17:00; Stop 09/07/18 at 17:01; Status DC Ondansetron HCl (Zofran) 4 mg 1X ONCE IV Last administered on 09/07/18at 17:24 ; Start 09/07/18 at 17:00; Stop 09/07/18 at 17:01; Status DC Morphine Sulfate (Morphine Sulfate) 5 mg 1X ONCE IV Last administered on 09/07at 17:25; Start 09/07/18 at 17:00; Stop 09/07/18 at 17:01; Status DC Ondansetron HCl (Zofran) 4 mg PRN Q8HRS PRN IV NAUSEA/VOMITING; Start at 18:45; Stop 09/07/18 at 19:14; Status DC Morphine Sulfate (Morphine Sulfate) 4 mg PRN Q2HR PRN IV PAIN; Start 09/07/18 at 18:45; Stop 09/08/18 at 18:44 Acetaminophen (Tylenol) 650 mg PRN Q4HRS PRN PO FEVER; Start 09/07/18 at 18:45 ; Stop 09/08/18 at 18:44 Nitroglycerin (Nitrostat) 0.4 mg PRN Q5MIN PRN SL CHEST PAIN; Start 09/07/18 at 18:45; Stop 09/08/18 at 18:44 Ondansetron HCl (Zofran) 4 mg PRN Q6HRS PRN IV NAUSEA/VOMITING; Start at 19:15 Lidocaine (Lidoderm) 1 patch QHS TD Last administered on 09/07/18at 21:29; Start 09/07/18 at 20:00 Miscellaneous (Lidoderm Patch Removal) 1 ea DAILY MC Last administered on 09/08at 09:12; Start 09/08/18 at 09:00 Naproxen (Naprosyn) 500 mg BIDWMEALS PO Last administered on 09/08/18at 09:12; Start 09/07/18 at 19:15; Stop 09/08/18 at 11:33; Status DC Labetalol HCl (Normodyne Iv Push) 20 mg PRN Q2HR PRN IVP HYPERTENSION, SEE COMMENTS; Start 09/07/18 at 19:15 Diphenhydramine HCl (Benadryl) 25 mg PRN QHS PRN PO INSOMNIA 1ST CHOICE; Start 09/07/18 at 19:15 Cyclobenzaprine HCl (Flexeril) 10 mg TID PO Last administered on 09/07/18at 21: 30; Start 09/07/18 at 21:00 Clonidine HCl (Catapres) 0.3 mg QHS PO Last administered on 09/07/18at 21:29; Start 09/07/18 at 21:00 Losartan Potassium (Cozaar) 50 mg DAILY PO Last administered on 09/08/18at 09: 13; Start 09/08/18 at 09:00 Trazodone HCl (Desyrel) 50 mg PRN QHS PRN PO INSOMNIA 2ND CHOICE; Start at 07:30 Citalopram Hydrobromide (CeleXA) 40 mg DAILY PO ; Start 09/08/18 at 10:00 Levothyroxine Sodium (Synthroid) 50 mcg DAILY06 PO Last administered on at 09:13; Start 09/08/18 at 10:00 Pantoprazole Sodium (Protonix) 40 mg DAILYAC PO ; Start 09/08/18 at 10:00 Famotidine (Pepcid) 20 mg QHS PO ; Start 09/08/18 at 21:00; Stop 09/08/18 at 21:00; Status DC Methylprednisolone Acetate (DEPO-Medrol 40MG VIAL) 40 mg 1X ONCE IM Last administered on 09/08/18at 12:19; Start 09/08/18 at 11:30; Stop 09/08/18 at 11 :47; Status DC Bupivacaine HCl (Sensorcaine-Mpf 0.25%) 10 ml 1X ONCE IJ Last administered on 09/08/18at 11:30; Start 09/08/18 at 11:30; Stop 09/08/18 at 11:47; Status DC Acetaminophen/ Hydrocodone Bitart (Lortab ) 1 tab PRN Q6HRS PRN PO PAIN; Start 09/08/18 at 11:30 Active Scripts Active Reported Losartan Potassium 50 Mg Tablet 50 Mg PO DAILY Citalopram Hbr (Citalopram Hydrobromide) 40 Mg Tablet 40 Mg PO DAILY Synthroid (Levothyroxine Sodium) 50 Mcg Tablet 1 Tab PO DAILY Ranitidine Hcl 150 Mg Capsule 150 Mg PO DAILY Trazodone Hcl 50 Mg Tablet 50 Mg PO PRN QHS PRN Protonix (Pantoprazole Sodium) 20 Mg Tablet.dr 40 Mg PO DAILY Clonidine Hcl 0.3 Mg Tablet 1 Tab PO QHS Allergies Allergies: Coded Allergies: No Known Drug Allergies (Unverified , 09/07/18) ROS PSYCHOLOGICAL ROS: No: Hallucinations Eyes: No Loss of vision HEENT: No: Epistaxis Respiratory: No: Hemoptysis, Shortness of breath Cardiovascular: yes Chest Pain Genitourinary: No Hematuria Neurological: No Seizures Skin: No Rash Physical Exam General: Alert, No acute distress HEENT: Atraumatic, PERRLA Lungs: Clear to auscultation Heart: Regular rate Abdomen: Soft, No tenderness Extremities: No edema Psych/Mental Status: Mood NL Vitals VITALS Vital Signs Date Time Temp Pulse Resp B/P (MAP) Pulse Ox O2 Delivery O2 Flow Rate FiO2 09/08/18 10:57 98.5 78 18 114/65 (81) 97 Room Air 98.5 09/07/18 17:45 2.0 Labs Labs Laboratory Tests Test 09/07/18 17:22 09/08/18 07:00 White Blood Count 8.5 x10^3/uL (4.0-11.0) 6.9 x10^3/uL (4.0-11.0) Red Blood Count 4.58 x10^6/uL (3.50-5.40) 4.32 x10^6/uL (3.50-5.40) Hemoglobin 14.2 g/dL (12.0-15.5) 13.3 g/dL (12.0-15.5) Hematocrit 40.4 % (36.0-47.0) 37.8 % (36.0-47.0) Mean Corpuscular Volume 88 fL (79-100) 88 fL (79-100) Mean Corpuscular Hemoglobin 31 pg (25-35) 31 pg (25-35) Mean Corpuscular Hemoglobin Concent 35 g/dL (31-37) 35 g/dL (31-37) Red Cell Distribution Width 13.6 % (11.5-14.5) 13.5 % (11.5-14.5) Platelet Count 336 x10^3/uL (140-400) 261 x10^3/uL (140-400) Neutrophils (%) (Auto) 55 % (31-73) 48 % (31-73) Lymphocytes (%) (Auto) 35 % (24-48) 39 % (24-48) Monocytes (%) (Auto) 6 % (0-9) 8 % (0-9) Eosinophils (%) (Auto) 3 % (0-3) 4 % (0-3) Basophils (%) (Auto) 2 % (0-3) 1 % (0-3) Neutrophils # (Auto) 4.7 x10^3uL (1.8-7.7) 3.3 x10^3uL (1.8-7.7) Lymphocytes # (Auto) 2.9 x10^3/uL (1.0-4.8) 2.7 x10^3/uL (1.0-4.8) Monocytes # (Auto) 0.5 x10^3/uL (0.0-1.1) 0.5 x10^3/uL (0.0-1.1) Eosinophils # (Auto) 0.2 x10^3/uL (0.0-0.7) 0.3 x10^3/uL (0.0-0.7) Basophils # (Auto) 0.1 x10^3/uL (0.0-0.2) 0.1 x10^3/uL (0.0-0.2) Sodium Level 140 mmol/L (136-145) 141 mmol/L (136-145) Potassium Level 4.3 mmol/L (3.5-5.1) 4.2 mmol/L (3.5-5.1) Chloride Level 101 mmol/L (98-107) 104 mmol/L (98-107) Carbon Dioxide Level 30 mmol/L (21-32) 27 mmol/L (21-32) Anion Gap 9 (6-14) 10 (6-14) Blood Urea Nitrogen 17 mg/dL (7-20) 18 mg/dL (7-20) Creatinine 1.2 mg/dL (0.6-1.0) 1.2 mg/dL (0.6-1.0) Estimated GFR (Cockcroft-Gault) 54.7 54.7 BUN/Creatinine Ratio 14 (6-20) Glucose Level 189 mg/dL (70-99) 201 mg/dL (70-99) Calcium Level 10.1 mg/dL (8.5-10.1) 9.7 mg/dL (8.5-10.1) Magnesium Level 2.1 mg/dL (1.8-2.4) Total Bilirubin 0.3 mg/dL (0.2-1.0) Aspartate Amino Transf (AST/SGOT) 27 U/L (15-37) Alanine Aminotransferase (ALT/SGPT) 107 U/L (14-59) Alkaline Phosphatase 213 U/L (46-116) Troponin I Quantitative < 0.017 ng/mL (0.000-0.055) < 0.017 ng/mL (0.000-0.055) QN-Orq-F-Type Natriuretic Peptide 30 pg/mL (0-124) Total Protein 8.3 g/dL (6.4-8.2) Albumin 4.1 g/dL (3.4-5.0) Albumin/Globulin Ratio 1.0 (1.0-1.7) Triglycerides Level 217 mg/dL (0-150) Cholesterol Level 180 mg/dL (0-200) LDL Cholesterol, Calculated 92 mg/dL (0-100) VLDL Cholesterol, Calculated 43 mg/dL (0-40) Non-HDL Cholesterol Calculated 135 mg/dL (0-129) HDL Cholesterol 45 mg/dL (40-60) Cholesterol/HDL Ratio 4.0 Laboratory Tests Test 09/07/18 17:22 09/08/18 07:00 White Blood Count 8.5 x10^3/uL (4.0-11.0) 6.9 x10^3/uL (4.0-11.0) Red Blood Count 4.58 x10^6/uL (3.50-5.40) 4.32 x10^6/uL (3.50-5.40) Hemoglobin 14.2 g/dL (12.0-15.5) 13.3 g/dL (12.0-15.5) Hematocrit 40.4 % (36.0-47.0) 37.8 % (36.0-47.0) Mean Corpuscular Volume 88 fL (79-100) 88 fL (79-100) Mean Corpuscular Hemoglobin 31 pg (25-35) 31 pg (25-35) Mean Corpuscular Hemoglobin Concent 35 g/dL (31-37) 35 g/dL (31-37) Red Cell Distribution Width 13.6 % (11.5-14.5) 13.5 % (11.5-14.5) Platelet Count 336 x10^3/uL (140-400) 261 x10^3/uL (140-400) Neutrophils (%) (Auto) 55 % (31-73) 48 % (31-73) Lymphocytes (%) (Auto) 35 % (24-48) 39 % (24-48) Monocytes (%) (Auto) 6 % (0-9) 8 % (0-9) Eosinophils (%) (Auto) 3 % (0-3) 4 % (0-3) Basophils (%) (Auto) 2 % (0-3) 1 % (0-3) Neutrophils # (Auto) 4.7 x10^3uL (1.8-7.7) 3.3 x10^3uL (1.8-7.7) Lymphocytes # (Auto) 2.9 x10^3/uL (1.0-4.8) 2.7 x10^3/uL (1.0-4.8) Monocytes # (Auto) 0.5 x10^3/uL (0.0-1.1) 0.5 x10^3/uL (0.0-1.1) Eosinophils # (Auto) 0.2 x10^3/uL (0.0-0.7) 0.3 x10^3/uL (0.0-0.7) Basophils # (Auto) 0.1 x10^3/uL (0.0-0.2) 0.1 x10^3/uL (0.0-0.2) Sodium Level 140 mmol/L (136-145) 141 mmol/L (136-145) Potassium Level 4.3 mmol/L (3.5-5.1) 4.2 mmol/L (3.5-5.1) Chloride Level 101 mmol/L (98-107) 104 mmol/L (98-107) Carbon Dioxide Level 30 mmol/L (21-32) 27 mmol/L (21-32) Anion Gap 9 (6-14) 10 (6-14) Blood Urea Nitrogen 17 mg/dL (7-20) 18 mg/dL (7-20) Creatinine 1.2 mg/dL (0.6-1.0) 1.2 mg/dL (0.6-1.0) Estimated GFR (Cockcroft-Gault) 54.7 54.7 BUN/Creatinine Ratio 14 (6-20) Glucose Level 189 mg/dL (70-99) 201 mg/dL (70-99) Calcium Level 10.1 mg/dL (8.5-10.1) 9.7 mg/dL (8.5-10.1) Magnesium Level 2.1 mg/dL (1.8-2.4) Total Bilirubin 0.3 mg/dL (0.2-1.0) Aspartate Amino Transf (AST/SGOT) 27 U/L (15-37) Alanine Aminotransferase (ALT/SGPT) 107 U/L (14-59) Alkaline Phosphatase 213 U/L (46-116) Troponin I Quantitative < 0.017 ng/mL (0.000-0.055) < 0.017 ng/mL (0.000-0.055) [id number]-Type Natriuretic Peptide 30 pg/mL (0-124) Total Protein 8.3 g/dL (6.4-8.2) Albumin 4.1 g/dL (3.4-5.0) Albumin/Globulin Ratio 1.0 (1.0-1.7) Triglycerides Level 217 mg/dL (0-150) Cholesterol Level 180 mg/dL (0-200) LDL Cholesterol, Calculated 92 mg/dL (0-100) VLDL Cholesterol, Calculated 43 mg/dL (0-40) Non-HDL Cholesterol Calculated 135 mg/dL (0-129) HDL Cholesterol 45 mg/dL (40-60) Cholesterol/HDL Ratio 4.0 Assessment/Plan Assessment/Plan 1. Chest pain with atypical features and most probably musculoskeletal. Myocardial infarction has been ruled out. Check 2-D echo to assess LV function and rule out wall motion abnormalities. Ischemic workup in the form of stress test could be considered as an outpatient. 2. Hypertension: Better controlled since admission 3. Hypothyroidism: Continue levothyroxine 4. Left hip pain radiating to the leg, appears to be secondary to osteoarthritis. Continue supportive care per IM Thank you for your consultation NORIS RESENDIZ MD Sep 08, 2018 12:21
[2018-09-08] MEDS: CITALOPRAM 20 MG TABLET. PO SCH (13:24)
[2018-09-08] MEDS: PANTOPRAZOLE 40 MG TABLET.DR. PO SCH (13:24)
[2018-09-08 15:00] VITALS: BP 110/65
[2018-09-08 19:59] VITALS: BP 112/60
[2018-09-08] MEDS ORDERED: FAMOTIDINE 20 MG TABLET. PO SCH (21:00)
[2018-09-08] MEDS: LIDOCAINE (700MG/PATCH) PATCH. TD SCH (21:36)
[2018-09-08] MEDS: cloNIDine HCL 0.3 MG TABLET PO SCH (21:36)
[2018-09-08 23:30] VITALS: BP 94/56
--- NOTE | 2018-09-09 02:52 | CONS ---
DATE OF CONSULTATION: 09/08/2018 LOCATION: She is in room 563. ATTENDING PHYSICIAN: Zayra Khan MD REASON FOR CONSULTATION: The patient was seen at the request of Dr. Khan for rehab evaluation. 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 She started having left groin pain starting around first week of this month without any specific injury or accident. Pain radiates to her left groin area. The patient had radiological studies including MRI scan, which revealed bulging of the disk at L4-L5, minimally asymmetric to the left. Neural foramina are well maintained. Central canal is minimally narrowed, measuring 10 mm at the lower limits of normal. Bilateral facet joint fluid is noted with facet spurring and facet degenerative changes, ligamentum flavum hypertrophy. Small synovial cyst are seen bilaterally at this level. There are extracanalicular, greater on the right side. At L5-S1, it showed mild degenerative changes of the facets and at L2-L3, minimal facet joint fluid noted. At L3-L4, mild facet fluid and degenerative changes, bilateral ligamentum flavum hypertrophy. Central canal and neural foramina are well maintained. There is also mild disk bulging at L3-L4. The patient lives with her . She denies any chronic hip or back pain. The patient was initially seen by her family physician in urgent care clinic, was given Flexeril without much help. The patient also had gone through prednisone Dosepak without much help. She denies any trouble with her bowel or bladder control or any weakness or numbness in the extremities. The patient is prediabetic, diet controlled, also takes Synthroid and she is on clonidine for hypertension. The patient is status post hysterectomy, sinus surgery, breast biopsy, family history of carcinoma, and deep venous thrombosis. The patient complained of right-sided chest pain in the emergency room and she was noted with hypertension, so she was admitted on 09/07/2018. The patient had family history of hypercholesterolemia and hypertension. She quit smoking. Takes alcohol on rare occasion. The patient admits some GI upset right now. PHYSICAL EXAMINATION: Today revealed a middle-aged female. She is slightly obese, alert, oriented to time, place, person and circumstance and follows commands appropriately, moves all 4 extremities voluntarily where she had 4+/5 grade muscle strength. She had painfully limited movements of her lumbar spine with tenderness to palpation over left lumbar paraspinal muscles extending over to sacroiliac joint area and straight leg raising test is negative bilaterally. She had pain free range of motion on both hip joints. She had tenderness to palpation over left trochanteric bursa area. She had mild crepitus on range of motion of both knee joints without any obvious knee joint effusion. Again, she had 5/5 grade muscle strength in her extremities. Deep tendon reflexes are 2+ and symmetrical and she had equal perception of touch and pinprick sensation bilaterally. She is having pain on rolling from side to side. She also has some tenderness to palpation over right sacroiliac joint area and straight leg raising test is negative bilaterally. ASSESSMENT: A middle-aged female with subacute lumbar sprain with radiological evidence of degenerative disk disease and degenerative joint disease of lumbar vertebrae with left lumbar radiculitis and left trochanteric bursitis. No clinical evidence of ongoing lumbar radiculopathy, mild degenerative joint disease of both knees. The patient with known hypertension, prediabetes. RECOMMENDATION: To proceed with injecting painful left sacroiliac joint area and to stop Naprosyn as it is upsetting her stomach, to get her up with lumbar corset and when pain is better controlled and she can able to get around, to let her go home with outpatient followup. If the pain does not get any better, to ask for lumbar epidural steroid injection. Dr. Khan, I appreciate asking me to participate in the care of this interesting patient. I will be glad to follow her with you as needed for her rehabilitation. ANGEL GARCES MD DR: DERICK/janis JOB#: [id number] / [id number]
[2018-09-09 03:55] VITALS: BP 114/70
[2018-09-09] MEDS: LEVOTHYROXINE 50 MCG TABLET PO SCH (06:42)
[2018-09-09 07:00] VITALS: BP 134/69
[2018-09-09] MEDS: PATCH REMOVAL. MC SCH (09:00)
[2018-09-09] MEDS: CITALOPRAM 20 MG TABLET. PO SCH (09:26)
[2018-09-09] MEDS: CYCLOBENZAPRINE 10 MG TABLET. PO SCH ×2 (09:26→14:56)
[2018-09-09] MEDS: PANTOPRAZOLE 40 MG TABLET.DR. PO SCH (09:26)
[2018-09-09] MEDS: LOSARTAN POTASSIUM 50 MG TABLET. PO SCH (09:27)
[2018-09-09] MEDS: HYDROcodone/APAP 10/325 1 TAB TABLET PO PRN ×2 (09:30→15:29)
[2018-09-09] MEDS ORDERED: CYCL10TA2 PO (10:58)
[2018-09-09] MEDS ORDERED: HYDR-2766 PO (10:58)
[2018-09-09] MEDS ORDERED: LIDO700A39 TD (10:58)
[2018-09-09 11:00] VITALS: BP 132/70
--- NOTE | 2018-09-09 11:02 | PDOC3 ---
Discharge Summary Visit Information Date of Admission: Sep 07, 2018 Date of Discharge: Sep 09, 2018 Admitting Diagnosis Comment: Left hip OA status post injections by physiatry-significantly improved Obesity, BMI 35 Accelerated hypertension secondary to left hip pain-better, did not need to start any new BP meds Hypothyroidism on Synthroid Final Diagnosis Problems Medical Problems: (1) Nausea Status: Acute Brief Hospital Course Allergies Allergies Coded Allergies Type Severity Reaction Last Updated Verified No Known Drug Allergies 09/07/18 No Vital Signs Vital Signs Date Time Temp Pulse Resp B/P (MAP) Pulse Ox O2 Delivery O2 Flow Rate FiO2 09/09/18 09:30 18 Room Air 09/09/18 09:27 59 134/69 09/09/18 07:00 97.8 100 97.8 Lab Results Laboratory Tests Test 09/07/18 17:22 09/08/18 07:00 09/08/18 12:00 09/08/18 17:50 White Blood Count 8.5 x10^3/uL (4.0-11.0) 6.9 x10^3/uL (4.0-11.0) Red Blood Count 4.58 x10^6/uL (3.50-5.40) 4.32 x10^6/uL (3.50-5.40) Hemoglobin 14.2 g/dL (12.0-15.5) 13.3 g/dL (12.0-15.5) Hematocrit 40.4 % (36.0-47.0) 37.8 % (36.0-47.0) Mean Corpuscular Volume 88 fL (79-100) 88 fL (79-100) Mean Corpuscular Hemoglobin 31 pg (25-35) 31 pg (25-35) Mean Corpuscular Hemoglobin Concent 35 g/dL (31-37) 35 g/dL (31-37) Red Cell Distribution Width 13.6 % (11.5-14.5) 13.5 % (11.5-14.5) Platelet Count 336 x10^3/uL (140-400) 261 x10^3/uL (140-400) Neutrophils (%) (Auto) 55 % (31-73) 48 % (31-73) Lymphocytes (%) (Auto) 35 % (24-48) 39 % (24-48) Monocytes (%) (Auto) 6 % (0-9) 8 % (0-9) Eosinophils (%) (Auto) 3 % (0-3) 4 % (0-3) Basophils (%) (Auto) 2 % (0-3) 1 % (0-3) Neutrophils # (Auto) 4.7 x10^3uL (1.8-7.7) 3.3 x10^3uL (1.8-7.7) Lymphocytes # (Auto) 2.9 x10^3/uL (1.0-4.8) 2.7 x10^3/uL (1.0-4.8) Monocytes # (Auto) 0.5 x10^3/uL (0.0-1.1) 0.5 x10^3/uL (0.0-1.1) Eosinophils # (Auto) 0.2 x10^3/uL (0.0-0.7) 0.3 x10^3/uL (0.0-0.7) Basophils # (Auto) 0.1 x10^3/uL (0.0-0.2) 0.1 x10^3/uL (0.0-0.2) Sodium Level 140 mmol/L (136-145) 141 mmol/L (136-145) Potassium Level 4.3 mmol/L (3.5-5.1) 4.2 mmol/L (3.5-5.1) Chloride Level 101 mmol/L (98-107) 104 mmol/L (98-107) Carbon Dioxide Level 30 mmol/L (21-32) 27 mmol/L (21-32) Anion Gap 9 (6-14) 10 (6-14) Blood Urea Nitrogen 17 mg/dL (7-20) 18 mg/dL (7-20) Creatinine 1.2 mg/dL (0.6-1.0) 1.2 mg/dL (0.6-1.0) Estimated GFR (Cockcroft-Gault) 54.7 54.7 BUN/Creatinine Ratio 14 (6-20) Glucose Level 189 mg/dL (70-99) 201 mg/dL (70-99) Calcium Level 10.1 mg/dL (8.5-10.1) 9.7 mg/dL (8.5-10.1) Magnesium Level 2.1 mg/dL (1.8-2.4) Total Bilirubin 0.3 mg/dL (0.2-1.0) Aspartate Amino Transf (AST/SGOT) 27 U/L (15-37) Alanine Aminotransferase (ALT/SGPT) 107 U/L (14-59) Alkaline Phosphatase 213 U/L (46-116) Troponin I Quantitative < 0.017 ng/mL (0.000-0.055) < 0.017 ng/mL (0.000-0.055) < 0.017 ng/mL (0.000-0.055) < 0.017 ng/mL (0.000-0.055) IN-Syl-W-Type Natriuretic Peptide 30 pg/mL (0-124) Total Protein 8.3 g/dL (6.4-8.2) Albumin 4.1 g/dL (3.4-5.0) Albumin/Globulin Ratio 1.0 (1.0-1.7) Triglycerides Level 217 mg/dL (0-150) Cholesterol Level 180 mg/dL (0-200) LDL Cholesterol, Calculated 92 mg/dL (0-100) VLDL Cholesterol, Calculated 43 mg/dL (0-40) Non-HDL Cholesterol Calculated 135 mg/dL (0-129) HDL Cholesterol 45 mg/dL (40-60) Cholesterol/HDL Ratio 4.0 Test 09/08/18 23:15 Troponin I Quantitative < 0.017 ng/mL (0.000-0.055) Laboratory Tests Test 09/08/18 12:00 09/08/18 17:50 09/08/18 23:15 Troponin I Quantitative < 0.017 ng/mL (0.000-0.055) < 0.017 ng/mL (0.000-0.055) < 0.017 ng/mL (0.000-0.055) Brief Hospital Course Ms. Clement is a 63 old obese -[place] female who has been battling left hip pain and low back pain for many months now. Did a CT scan and MRI at [facility]. was told to have OA, no improvement with by mouth pain meds. Admitted here. I did consult physiatry and had significant 100% improvement after injections by physiatry. Blood pressure was high initially but that was secondary to pain and blood pressure is now controlled without me adjusting BP meds after injections by physiatry. Rx today Flexeril, Lidoderm patch and by mouth pain meds To follow-up with Dr. Jay when necessary COnsults performed physiatry Proc performed: left hip inj No PT needs Discharge Information Condition at Discharge: Improved, Stable Disposition/Orders: D/C to Home Scheduled Citalopram Hydrobromide (Citalopram Hbr) 40 Mg Tablet, 40 MG PO DAILY, (Reported ) Entered as Reported by: ABRIL SOL on 09/07/182057 Last Action: Converted on 09/08/18725 by ABRIL SOL Clonidine Hcl (Clonidine Hcl) 0.3 Mg Tablet, 1 TAB PO QHS, #30 (Reported) Entered as Reported by: ABRIL SOL on 09/07/182057 Last Action: New Order on 09/07/182057 by ABRIL SOL Cyclobenzaprine Hcl (Cyclobenzaprine Hcl) 10 Mg Tablet, 10 MG PO TID, #30 Prescribed by: ARANZA BERRY on 09/09/18 1058 Levothyroxine Sodium (Synthroid) 50 Mcg Tablet, 1 TAB PO DAILY, #90 Ref 3 ( Reported) Entered as Reported by: ABRIL SOL on 09/07/182057 Last Action: Converted on 09/08/18725 by ABRIL SOL Lidocaine (Lidocaine) 1 Each Adh..patch, 1 PATCH TD QHS, #10 Prescribed by: ARANZA BERRY on 09/09/18 1058 Losartan Potassium (Losartan Potassium) 50 Mg Tablet, 50 MG PO DAILY, (Reported) Entered as Reported by: ABRIL SOL on 09/07/182057 Last Action: Continued on 09/08/18725 by ABRLI SOL Pantoprazole Sodium (Protonix) 20 Mg Tablet.dr, 40 MG PO DAILY, (Reported) Entered as Reported by: ABRIL SOL on 09/07/182057 Last Action: Converted on 09/08/18725 by ABRIL SOL Ranitidine Hcl (Ranitidine Hcl) 150 Mg Capsule, 150 MG PO DAILY, (Reported) Entered as Reported by: ABRIL SOL on 09/07/182057 Last Action: Converted on 09/08/18725 by ABRIL SOL Scheduled PRN Hydrocodone Bit/Acetaminophen (Hydrocodone-Apap 10-325 ) 1 Each Tablet, 1 TAB PO PRN Q6HRS PRN for PAIN, #15 Prescribed by: ARANZA BERRY on 09/09/18 1058 Trazodone Hcl (Trazodone Hcl) 50 Mg Tablet, 50 MG PO PRN QHS PRN for INSOMNIA, ( Reported) Entered as Reported by: ABRIL SOL on 09/07/182057 Last Action: Continued on 09/08/18725 by ARANZA ZUNIGA MD Sep 09, 2018 11:02
--- NOTE | 2018-09-09 11:09 | PDOC ---
PROGRESS NOTES Subjective Subjective Feeling better today. Chest pain resolved. Objective Objective Vital Signs Date Time Temp Pulse Resp B/P (MAP) Pulse Ox O2 Delivery O2 Flow Rate FiO2 09/09/18 09:30 18 Room Air 09/09/18 09:27 59 134/69 09/09/18 07:00 97.8 100 97.8 Intake and Output 09/09/18 07:00 Intake Total 1200 ml Balance 1200 ml Intake Oral 1200 ml # Voids 2 Physical Exam Abdomen: Soft, No tenderness Heart: Regular rate Extremities: No edema General: Alert, No acute distress HEENT: Atraumatic, PERRLA Lungs: Clear to auscultation Neuro: Normal gait, Normal speech, Strength at 5/5 X4 ext, Normal tone, Sensation intact, Cranial nerves 3-12 NL, Reflexes 2+ Psych/Mental Status: Mood NL Skin: No rashes, No breakdown, No significant lesion Assessment Assessment 1. Chest pain with atypical features and most probably musculoskeletal. Myocardial infarction has been ruled out. 2-D echo showed normal LV function without any wall motion abnormalities. We will consider ischemic workup in the form of stress test as an outpatient. 2. Hypertension: Better controlled since admission 3. Hypothyroidism: Continue levothyroxine 4. Left hip pain radiating to the leg, appears to be secondary to osteoarthritis. Continue supportive care per IM Plan Plan of Care Problems Medical Problems: (1) Nausea Status: Acute Comment Review of Relevant I have reviewed the following items shola (where applicable) has been applied. Labs Laboratory Tests Test 09/08/18 12:00 09/08/18 17:50 09/08/18 23:15 Troponin I Quantitative < 0.017 ng/mL (0.000-0.055) < 0.017 ng/mL (0.000-0.055) < 0.017 ng/mL (0.000-0.055) Medications Current Medications Acetaminophen/ Hydrocodone Bitart (Lortab 10/325) 1 tab PRN Q6HRS PRN PO PAIN Last administered on 09/09/18at 09:30; Start 09/08/18 at 11:30 Bupivacaine HCl (Sensorcaine-Mpf 0.25%) 10 ml 1X ONCE IJ Last administered on 09/08/18at 11:30; Start 09/08/18 at 11:30; Stop 09/08/18 at 11:47; Status DC Famotidine (Pepcid) 20 mg QHS PO ; Start 09/08/18 at 21:00; Stop 09/08/18 at 21:00; Status DC Methylprednisolone Acetate (DEPO-Medrol 40MG VIAL) 40 mg 1X ONCE IM Last administered on 09/08/18at 12:19; Start 09/08/18 at 11:30; Stop 09/08/18 at 11 :47; Status DC Vitals/I & O Vital Sign - Last 24 Hours 09/08/18 09/08/18 09/08/18 09/08/18 13:23 13:53 15:00 19:59 Temp 97.9 97.9 97.9 97.9 Pulse 76 72 Resp 18 18 18 18 B/P (MAP) 110/65 (80) 112/60 (77) Pulse Ox 97 95 98 O2 Delivery Room Air Room Air Room Air Room Air 09/08/18 09/08/18 09/08/18 09/09/18 20:05 21:36 23:30 03:55 Temp 97.5 97.8 97.5 97.8 Pulse 72 66 63 Resp 19 18 B/P (MAP) 112/60 94/56 (69) 114/70 (85) Pulse Ox 99 99 O2 Delivery Room Air Room Air Room Air 09/09/18 09/09/18 09/09/18 09/09/18 07:00 08:00 09:27 09:30 Temp 97.8 97.8 Pulse 59 59 Resp 20 18 B/P (MAP) 134/69 (90) 134/69 Pulse Ox 100 O2 Delivery Room Air Room Air Room Air Intake and Output 09/08/18 09/08/18 09/09/18 15:00 23:00 07:00 Intake Total 600 ml 360 ml 240 ml Balance 600 ml 360 ml 240 ml NORIS RESENDIZ MD Sep 09, 2018 11:09
--- NOTE | 2018-09-09 12:25 | CARD ---
MR#: [id number] Date of Study: 09/09/2018 Ordering Physician: NORIS JORGENSEN, Referring Physician: ARANZA BERRY Tech: Wen Moses BRANDON APPROVED REPORT EXAM: Two-dimensional and M-mode echocardiogram with Doppler and color Doppler. Other Information Quality : GoodHR: 65bpm INDICATION Chest Pain 2D DIMENSIONS Left Atrium(2D)3.2 (1.6-4.0cm)IVSd1.1 (0.7-1.1cm) Aortic Root(2D)2.6 (2.0-3.7cm)LVDd3.9 (3.9-5.9cm) LVOT Diameter2.1 (1.8-2.4cm)PWd1.1 (0.7-1.1cm) LVDs2.4 (2.5-4.0cm)FS (%) 38.4 % SV46.3 mlLVEF(%)69.4 (>50%) CO3.1 L/min M-Mode DIMENSIONS Aortic Cusp Exc1.83 (1.5-2.0cm) Aortic Valve AoV Peak Ganesh.93.1cm/sAoV VTI18.8cm AO Peak GR.3.5mmHgLVOT VTI 21.11cm AO Mean GR.2mmHg Mitral Valve MV E Ecuoocol43.7cm/sMV DECEL [id number] MV A Pvrvogek42.3cm/sE/A Ratio0.8 MV A [id number] TDI Lateral E' P. V5.35cm/sMedial E' P. V4.70cm/s E/Lateral E'11.2E/Medial E'12.7 Pulmonary Valve PV Peak Xzwztxst77.4cm/s Pulmonary Vein S1 Hvgzzvyt71.3cm/sS2 Yuwkfhhf03.19cm/s D2 Ohwbrcka74.2cm/s LEFT VENTRICLE The left ventricle is normal size. There is borderline concentric left ventricular hypertrophy. The l eft ventricular systolic function is normal. The ejection fraction is estiamted at 60%. There is norm al LV segmental wall motion. Transmitral Doppler flow pattern is Grade I-abnormal relaxation pattern. No left ventricle thrombus noted on this study. There is no ventricular septal defect visualized. Th ere is no left ventricular aneurysm. There is no mass noted in the left ventricle. RIGHT VENTRICLE The right ventricle is normal size. There is normal right ventricular wall thickness. The right ventr icular systolic function is normal. ATRIA The left atrium size is normal. The right atrium size is normal. The interatrial septum is intact wit h no evidence for an atrial septal defect or patent foramen ovale as noted on 2-D or Doppler imaging. AORTIC VALVE The aortic valve is normal in structure and function. Doppler and Color Flow revealed no significant aortic regurgitation. There is no significant aortic valvular stenosis. There is no aortic valvular v egetation. MITRAL VALVE The mitral valve is normal in structure and function. There is no evidence of mitral valve prolapse. There is no mitral valve stenosis. Doppler and Color-flow revealed trace mitral regurgitation. TRICUSPID VALVE The tricuspid valve is normal in structure and function. Doppler and Color Flow revealed no tricuspid valve regurgitation noted. There is no tricuspid valve prolapse or vegetation. There is no tricuspid valve stenosis. PULMONIC VALVE The pulmonary valve is normal in structure and function. Doppler and Color Flow revealed no pulmonic valvular regurgitation. There is no pulmonic valvular stenosis. GREAT VESSELS The aortic root is normal in size. The IVC is normal in size and collapses >50% with inspiration. PERICARDIAL EFFUSION There is no pleural effusion. There is no evidence of significant pericardial effusion. Critical Notification Critical Value: No <Conclusion> Technically difficult study. The left ventricular systolic function is normal. The ejection fraction is estiamted at 60%. There is normal LV segmental wall motion. Transmitral Doppler flow pattern is Grade I-abnormal relaxation pattern. Doppler and Color-flow revealed trace mitral regurgitation. There is no evidence of significant pericardial effusion. Signed by : Noris Jorgensen, Electronically Approved : 09/09/2018 12:24:50
[2018-09-09 15:00] VITALS: BP 134/68
== END 2018-09-09 15:00 | disposition home or self-care (01) | DRG 554 ==
LOC: ER 16:28 → 5 SOUTH 18:31 → OBSVTOIN 18:54 → 5 SOUTH 20:09 → UNDODISOB 09-09 15:00
PROVIDERS: ADMIT Internal Medicine; ATTEND Internal Medicine
PROC: 3E0U3GC Introduction of Other Therapeutic Substance into Joints, Percutaneous Approach (ICD-10-PCS; principal; 2018-09-09)
DX: M16.12 Unilateral primary osteoarthritis, left hip (principal); I10 Essential (primary) hypertension; R11.0 Nausea; E11.9 Type 2 diabetes mellitus without complications; M54.5 Low back pain; E66.9 Obesity, unspecified; E03.9 Hypothyroidism, unspecified; R07.2 Precordial pain; G47.00 Insomnia, unspecified; S33.5XXA Sprain of ligaments of lumbar spine, initial encounter; M70.62 Trochanteric bursitis, left hip; M47.26 Other spondylosis with radiculopathy, lumbar region; Z80.0 Family history of malignant neoplasm of digestive organs; Z68.35 Body mass index [BMI] 35.0-35.9, adult; Z90.710 Acquired absence of both cervix and uterus; Z83.49 Family history of other endocrine, nutritional and metabolic diseases; Z82.49 Family history of ischemic heart disease and other diseases of the circulatory system; Z87.891 Personal history of nicotine dependence
CPT/HCPCS: 36415; 71045; 80048; 80053; 80061; 83735; 83880; 84484; 85025; 93005; 93306; 96374; 96375; G0378; G0379; J1030; J2270; J2405; J3490; 99285-25